=== PATIENT | male | born 1970 | race Caucasian/White ===

== ENCOUNTER 2019-01-24 15:54 | Observation (INO) | payer OTHER, SELFPAY ==
[2019-01-24 16:32] LABS: #Basophils 0.1 thou/uL (0.0-0.2); #Eosinphils 0.2 thou/uL (0.0-0.7); #Monocytes 0.4 thou/uL (0.11-0.59); #Neutrophils 3.3 thou/uL (1.40-6.50); %Basophils 1.4 % (0.0-1.0); %Eosinophils 2.6 % (0.0-10.0); %Lymphocytes 33.8 % (21.0-51.0); %Monocytes 7.1 % (0.0-10.0); %Neutrophils 55.1 % (42.0-75.0); Hemoglobin 15.4 g/dL (14.0-18.0); Mean Corpuscular Hemoglobin 32.8 pg (27.0-31.0); Mean Corpuscular Volume 91.1 fL (78.0-98.0); Mean Platelet Volume 6.6 fL (7.4-10.4); Platelet Count 286 thou/uL (130-400); RBC Distribution Width 11.6 % (11.5-14.5); Red Blood Cell (RBC) Count 4.69 mill/uL (4.70-6.10)
[2019-01-24 17:01] LABS: ALT (SGPT) 28 U/L (8-55); AST (SGOT) 15 U/L (5-34); Albumin 4.5 g/dL (3.5-5.0); Alkaline Phosphatase 74 U/L (40-150); Anion Gap 17 mmol/L (10-20); BUN (Urea Nitrogen) 10 mg/dL (8.9-20.6); Bilirubin, Total 0.5 mg/dL (0.2-1.2); Calc. Creatinine Clearance 0 mL/min (70-130); Calcium 9.2 mg/dL (7.8-10.44); Carbon Dioxide 22 mmol/L (22-29); Chloride 99 mmol/L (98-107); Estimated GFR-MDRD Greater than 90; Globulin 3.2 g/dL (2.4-3.5); Glucose 206 mg/dL (70-105); Potassium 3.7 mmol/L (3.5-5.1); Protein, Total 7.7 g/dL (6.0-8.3); Sodium 134 mmol/L (136-145)
--- NOTE | 2019-01-24 17:14 | RAD ---
EXAM: Chest one view: HISTORY: Chest pain COMPARISON: 12/02/2010 FINDINGS: Heart size: Within normal limits. Lungs: Clear of acute process. No evidence for pneumonia, pleural effusion, acute edema, or pneumothorax, or other significant acute process. IMPRESSION: No significant acute intrathoracic disease.
--- NOTE | 2019-01-24 17:16 | ULT ---
EXAM: Right lower extremity venous duplex ultrasound with color and spectral Doppler imaging: HISTORY: Right leg pain, swelling, edema COMPARISON: None FINDINGS: Exam performed from the groin to the ankle including the visualized greater saphenous, common femoral , superficial femoral, profunda femoral, popliteal, trifurcation, and posterior tibial veins. There is phasic flow with normal compressibility and normal augmentation at all examined levels. No evidence for intraluminal thrombus. IMPRESSION: No evidence for deep venous thrombosis.
[2019-01-24] MEDS ORDERED: Nitroglycerin 2% Ointment 1 INCH/1 GM Packet ONE (17:55)
[2019-01-24] MEDS ORDERED: Aspirin Chewable 81 MG TAB ONE (17:55)
[2019-01-24] MEDS ORDERED: Ondansetron PF 4 MG/2 ML Vial IVP PRN (18:06)
[2019-01-24] MEDS ORDERED: Acetaminophen 325 MG TAB PO PRN (18:06)
[2019-01-24] MEDS ORDERED: Acetaminophen 650 MG Suppository PR PRN (18:06)
[2019-01-24] MEDS ORDERED: Ondansetron ODT 4 MG TAB PO PRN (18:06)
[2019-01-24] MEDS ORDERED: HumaLOG 300 UNITS/3 ML VIAL SC PRN ×2 (18:14)
[2019-01-24] MEDS ORDERED: Dextrose 5% in Water 1,000 ML IV PRN (18:14)
[2019-01-24] MEDS ORDERED: Dextrose 50% Abboject 50 ML SYRINGE SLOW IVP PRN (18:14)
[2019-01-24 19:19] VITALS: BMI 37.4
--- NOTE | 2019-01-24 19:37 | HP ---
CHIEF COMPLAINT: Chest pain. HISTORY OF PRESENT ILLNESS: Mr. Yoon is a 48-year-old man with an extensive cardiac history including two MIs in the past, a history of CVA and multiple cardiac stents (approximately total of 13). The patient states none of the stents were removed nor clotted off, but he continued to require additional stents. He states he initially was seen by Cardiology at [facility] and it was decided the occlusion to his LAD could be fixed with stents. The patient states after having multiple stents, it was felt he would not be amenable to surgery due to scarring. The patient moved to [place] due to his father becoming ill and he established care with Cardiology there. Again, required stent placements and has more recently returned to [facility] and started working at [facility] and . He has not yet established care here and has not been seen by a continuous improvement coach in over a year. His last investigations and echo were done approximately 2 years ago during which time, the patient states his ejection fraction was just shy of what would qualify him for disability. He has been compliant with his medications including metformin for diabetes, lisinopril for hypertension and aspirin as well as Plavix. The patient, however, states he ran out of his Coreg and due to not having insurance, has been unable to resume it. He states he often experiences central chest pressure, but in the last 2 days it has become more severe, which he describes as "someone sitting on my chest." The patient has also developed burning sensation to his face today with diaphoresis. He states the pressure is nonradiating. Denies any neck pain or pain in his arms. Denies any recent cough or hemoptysis. Reports having shortness of breath at baseline, which is slightly worsened as well for the last 2 to 3 days. He states he has residual dizziness from a previous CVA and states he was told the cervical arteries were significantly stenosed and he has approximately 40% to 50% bilateral carotid artery stenosis. The patient states his dizziness is the same as it has been since experiencing the CVA in the past. Denies any speech disturbances or vision changes. No neuro deficits. He has a good appetite. Reports being extremely overweight and previously weighed 453 pounds, much of which he has lost. Reports having intermittent issues with diarrhea and constipation which are long-standing. Reports chronic dysuria but no hematuria. Reports having mild nausea today. REVIEW OF SYSTEMS: All other review of systems are negative. PAST MEDICAL HISTORY: 1. Extensive coronary artery disease. 2. Myocardial infarction x2. 3. Type 2 diabetes mellitus. 4. Kidney stones. 5. Hyperlipidemia. 6. Hypertension. 7. Obesity. PAST SURGICAL HISTORY: 1. Cardiac stents x13. 2. Left index finger surgery. 3. Lithotripsy. SOCIAL HISTORY: The patient denies any tobacco use, alcohol use, or illicit drug use. ALLERGIES: 1. TEGRETOL. 2. BEE POLLEN. CURRENT MEDICATIONS: 1. Metformin. 2. Lisinopril. 3. Carvedilol. 4. Plavix. 5. Atorvastatin. PHYSICAL EXAMINATION: GENERAL: The patient appears obese, well developed, and is in no apparent distress. VITAL SIGNS: Temperature 98.6, pulse 88, respirations 14, O2 saturation 97% on room air, and blood pressure 171/84. HEENT: Normocephalic and atraumatic. Pupils are equal, round, reactive to light. Sclerae are without icterus. Oropharynx is clear. NECK: Supple without lymphadenopathy. Full range of motion. LUNGS: Clear to auscultation bilaterally without any wheezes, rales, or rhonchi. CARDIAC: Regular rate and rhythm. ABDOMEN: Obese, soft, nontender, nondistended. Normoactive bowel sounds present. No guarding or rigidity. No renal angle tenderness. EXTREMITIES: His right calf has increased girth compared to the left. No calf tenderness. No edema. NEUROLOGIC: Alert and oriented x3. No neuro deficits. Cranial nerves 2 through 12 intact. No cerebellar signs. SKIN: Warm and dry. No rash or jaundice. LABORATORY DATA: White blood count 6, hemoglobin 15.4, hematocrit 42.7, platelets 286. Sodium 134, potassium 3.7, BUN 10, creatinine 0.79, GFR greater than 90, glucose 206, calcium 9.2, total bilirubin 0.5. Remaining LFTs unremarkable. Initial troponin negative. IMAGING DATA: 1. Chest x-ray 01/24/2019, no significant acute intrathoracic disease. Heart size within normal limits. 2. Vascular ultrasound of the right lower extremity, 01/24/2019. No evidence for DVT. IMPRESSION AND PLAN: Mr. Yoon is a pleasant 48-year-old man with extensive cardiac history as detailed above, who has been referred for management of the following. 1. Acute coronary syndrome rule out. In the emergency department, he underwent an EKG that shows a complete right bundle-branch block with no ST or T-wave abnormalities. The patient confirmed he is known to have a right bundle-branch block. Chest x-ray unremarkable. Initial troponin negative. We will continue to trend his troponin. We will consult Cardiology for review tomorrow morning. We have tentatively scheduled a stress test in the a.m. following discussion with Dr. Wilkins given the fact that it has been more than two years since his last cardiac investigations. We will also obtain an echo. The patient is currently being given nitro paste and aspirin. We will need to obtain records from [facility] and from the Cardiology office in [place] if possible. We will add TSH and magnesium to his labs as well as a BNP. 2. Type 2 diabetes mellitus. We will hold metformin. We will initiate insulin sliding scale and monitor his glucose. 3. Hypertension. We will resume home medications once verified. We will monitor his blood pressure. 4. Hyperlipidemia. We will resume statin and we will check lipid panel with am labs. 5. Gastrointestinal prophylaxis. 6. Deep venous thrombosis prophylaxis with mechanical SCDs. 7. Dysuria. The patient states this is chronic and not worse than normal, but we will check urinalysis. 8. Code status full. His surrogate decision maker is his , Goldie Yoon. The patient's case will be discussed with attending for further recommendations. Job ID: [id number] MTDD
[2019-01-24 20:50] LABS: Troponin I Less than 0.010 ng/mL (< 0.028)
[2019-01-24] MEDS ORDERED: Famotidine/PF 20 mg/2ml Vial SLOW IVP SCH (21:00)
[2019-01-24] MEDS ORDERED: Nitroglycerin 0.4 MG TAB (25 Tab Bottle) SL PRN (22:33)
[2019-01-24] MEDS ORDERED: Carvedilol 6.25 MG TAB PO SCH (22:45)
[2019-01-24] MEDS ORDERED: Atorvastatin Calcium 40 MG TAB PO SCH (22:45)
[2019-01-24] MEDS: Famotidine 20 MG TAB PO SCH (23:12)
[2019-01-24 23:31] LABS: Bilirubin Negative (Negative); Blood, Urine Negative (Negative); Clarity CLEAR (Clear); Glucose, Urine (Dipstick) Negative (Negative); Leukocyte Negative (Negative); Nitrite Negative (Negative); Protein, Urine (Dipstick) Negative (Neg-Trace); Urobilinogen 0.2 mg/dL (0.2-1.0)
[2019-01-24 23:32] LABS: Bacteria/HPF None Seen HPF (None Seen); Hyaline Casts/LPF 0-3 HYALINE CAST LPF (0-3 Hyaline); RBC/HPF 0-3 HPF (0-3); Squamous Epithelial None Seen HPF (0-3); WBC/HPF None Seen HPF (0-3)
[2019-01-24 23:34] LABS: Troponin I Less than 0.010 ng/mL (< 0.028)
[2019-01-24 23:43] LABS: Urine Culture Reflex No No
[2019-01-25 00:07] LABS: Amphetamine Not Detected (NotDetected); Barbiturates Screen Not Detected (NotDetected); Benzodiazepine Screen Not Detected (NotDetected); Cocaine Metabolite Screen Not Detected (NotDetected); Medtox Control Line Valid? VALID (VALID); Medtox Reader # READER 4; Methadone Not Detected (NotDetected); Methamphetamine Not Detected (NotDetected); Opiate Screen Not Detected (NotDetected); Oxycodone Screen Not Detected (NotDetected); Phencyclidine (PCP) Not Detected (NotDetected); THC/Cannabinoid Screen Not Detected (NotDetected); Tricyclic Screen Not Detected (NotDetected)
[2019-01-25 05:07] LABS: #Basophils 0.1 thou/uL (0.0-0.2); #Eosinphils 0.2 thou/uL (0.0-0.7); #Lymphocytes 2.3 thou/uL (1.20-3.40); #Monocytes 0.6 thou/uL (0.11-0.59); #Neutrophils 3.3 thou/uL (1.40-6.50); %Eosinophils 2.6 % (0.0-10.0); %Monocytes 9.3 % (0.0-10.0); %Neutrophils 51.1 % (42.0-75.0); Hemoglobin 13.7 g/dL (14.0-18.0); Mean Corpuscular HGB CONC 34.8 g/dL (32.0-36.0); Mean Corpuscular Hemoglobin 32.1 pg (27.0-31.0); Mean Corpuscular Volume 92.3 fL (78.0-98.0); Mean Platelet Volume 6.7 fL (7.4-10.4); Platelet Count 253 thou/uL (130-400); RBC Distribution Width 11.7 % (11.5-14.5); Red Blood Cell (RBC) Count 4.27 mill/uL (4.70-6.10); White Blood Cell (WBC) Count 6.4 thou/uL (4.8-10.8)
[2019-01-25 05:27] LABS: Anion Gap 14 mmol/L (10-20); BUN (Urea Nitrogen) 10 mg/dL (8.9-20.6); Calc. Creatinine Clearance 212 mL/min (70-130); Calcium 8.8 mg/dL (7.8-10.44); Carbon Dioxide 24 mmol/L (22-29); Cardiac Risk 5.6 (Less than 4.5); Chloride 102 mmol/L (98-107); Cholesterol 167 mg/dl (< 200 Desired); Estimated GFR-MDRD Greater than 90; Glucose 163 mg/dL (70-105); HDL Cholesterol 30 mg/dL (>60 Neg Risk); LDL Cholesterol, Calculated 58 mg/dL; Potassium 4.1 mmol/L (3.5-5.1); Sodium 136 mmol/L (136-145); Triglycerides 397 mg/dL (Less than 150)
[2019-01-25] MEDS: Famotidine 20 MG TAB PO SCH (08:49)
[2019-01-25] MEDS ORDERED: Carvedilol 6.25 MG TAB PO SCH (09:00)
[2019-01-25] MEDS ORDERED: Clopidogrel Bisulfate 75 MG TAB PO SCH (09:00)
[2019-01-25] MEDS ORDERED: Lisinopril 20 MG TAB PO SCH (09:00)
[2019-01-25] MEDS ORDERED: Aspirin 81 mg Enteric Coated Tablet PO SCH (11:45)
--- NOTE | 2019-01-25 12:09 | NM ---
EXAM: Nuclear medicine cardiac SPECT with EF and wall motion: HISTORY: Chest pain Protocol: Exam was performed using Lexiscan protocol. The patient is injected with28.0 millicuries of technetium 99m sestamibi intravenously for stress martha ges. The patient is injected with9.9 millicuries of technetium 99 sestamibi intravenously for resting imag es. Multiple SPECT images are performed in the short axis, vertical long axis, and horizontal long axis. FINDINGS: No scan evidence for infarct or ischemia. TID:1.09 LHR:0.34 EDV:145 mL EF:64% Wall motion:Unremarkable IMPRESSION: Unremarkable cardiac SPECT with EF and wall motion
[2019-01-25 15:46] VITALS: BP 129/64; TEMP 98.6
--- NOTE | 2019-01-25 19:25 | CON ---
DATE OF CONSULTATION: HISTORY OF PRESENT ILLNESS: Suraj Yoon is a 48-year-old white male, who has been seen and evaluated by multiple cardiologists in the past. He previously saw Dr. Hubbard and then was seen by Dr. aMrk Mendez in [place] and had stents placed. He then saw Dr. Degroot, had stents placed. He also underwent stent placement by Dr. Tang at [facility] in November 2015. He then moved to [place] and had stents placed there. He recently has moved back to [facility]. He has been out of his atorvastatin for at least 3 to 4 months and also out of his carvedilol for 10 or 12 days. He states he always has left-sided chest discomfort that is one very small area that is somewhat pleuritic in nature and is there 24 hours per day. He had had a somewhat different type discomfort that was more of a pressure in his chest that lasted continually for 2-1/2 days before he finally came to the emergency room. He has been restarted on his medications and has been asymptomatic since. PAST MEDICAL HISTORY: Coronary artery disease, history of myocardial infarction x2, diabetes, hyperlipidemia, hypertension, obesity. PAST SURGICAL HISTORY: 13 coronary artery stents placed, left index finger surgery, and lithotripsy. MEDICATIONS: 1. Atorvastatin 80 q.h.s. 2. Carvedilol 6.25 b.i.d. 3. Plavix 75 daily. 4. Aspirin 325 daily. 5. Lisinopril 30 daily. 6. Magnesium 250 q.h.s. 7. Metformin 1000 b.i.d. 8. Potassium 99 mg daily. ALLERGIES: HONEY BEE VENOM AND TEGRETOL. SOCIAL HISTORY: He does not smoke or drink. REVIEW OF SYSTEMS: Unremarkable. PHYSICAL EXAMINATION: VITAL SIGNS: Blood pressure 129/64, pulse 75. HEENT: PERRL. NECK: Supple. CHEST: Clear. CARDIAC: S1 and S2 are normal without any S3, S4, or murmurs. Carotid upstrokes are normal without bruits. ABDOMEN: Normal bowel sounds without tenderness or organomegaly. EXTREMITIES: Revealed no clubbing, cyanosis, or edema. LABORATORY DATA: EKG revealed normal sinus rhythm with left axis deviation and right bundle-branch block. Hemoglobin 13.7, hematocrit 39.4, white count 6400, and platelets 253,000. Sodium 136, potassium 4.1, chloride 102, carbon dioxide 24, BUN 10, and creatinine 0.81. Cholesterol 167, triglycerides 397, HDL 30, LDL 58. The patient underwent adenosine Cardiolite testing, which revealed no evidence of ischemia or fixed defect with ejection fraction of 64%. Troponin I less than 0.010. IMPRESSION: 1. Continual cardiac pain that is present 24 hours per day and somewhat pleuritic in nature that does not sound cardiac. 2. 2-1/2 days of continual pain, probably due to noncompliance with his carvedilol. 3. Normal Cardiolite at this time. 4. History of multiple coronary stents placed in the past. 5. Hypertension. 6. Hyperlipidemia. 7. Diabetes. PLAN: With normal Cardiolite scan, I feel our best initial course would be to just restart his usual medications. Currently, he is asymptomatic with that, and I do not feel that he needs to undergo cardiac catheterization at this time. He will be seen again in two months for followup of his lipids. Job ID: [id number] [facility]X HOSPITALJose Luis
[2019-01-25] MEDS ORDERED: Atorvastatin Calcium 40 MG TAB PO SCH (21:00)
--- NOTE | 2019-01-26 03:19 | DIS ---
DATE OF ADMISSION: 01/24/2019 DATE OF DISCHARGE: 01/25/2019 CHIEF COMPLAINT ON ADMISSION: Chest pain. DISCHARGE DIAGNOSES: 1. Chest pain, resolved, acute coronary syndrome ruled out, MPI negative for reversible ischemia, and showing normal EF. 2. Triple-vessel coronary artery disease status post multiple interventions/PCI, 12 to 13 for patient with at least three different collaborative teacher. 3. Hypertension. 4. Type 2 diabetes mellitus. 5. Hyperlipidemia/hypertriglyceridemia. BRIEF HOSPITAL COURSE: The patient is a 48-year-old male with past medical history significant for triple-vessel CAD status post multiple interventions as outlined above, who presented to the hospital with complaints of chest discomfort. The patient describes the pain as pressure and it was relieved with nitroglycerin. Because of his history, he did present to the emergency department for further workup and treatment. He underwent nuclear stress test, which showed no evidence of reversible ischemia and normal EF. Dr. Chun of Cardiology was consulted, who saw the patient as well. Dr. Chun did clear the patient for discharge, and he will follow up with him in the outpatient setting. Upon my interview today, the patient's initial complaint of chest pressure has resolved. He does have some residual noncardiac chest pain that is constant and that the patient can pinpoint. Otherwise, no complaints. CONSULTANTS: Dr. Chun of Cardiology. DISCHARGE CONDITION: Stable. DISCHARGE DISPOSITION: Home. DISCHARGE INSTRUCTIONS AND FOLLOWUP: The patient will be discharged home today. He will continue aspirin, Plavix, statin, beta lc, and lisinopril. He has been cleared for discharge by Dr. Chun. He will follow up with Dr. Chun in the outpatient setting, as well as have his cholesterol panel rechecked in about 3 months. The patient has also been advised to find a primary care physician to follow up with as well. I have also sent him home with a new prescription for sublingual nitroglycerin for him to take as needed. No indications for left heart catheterization at this time. He will also continue aggressive risk factor modification including aggressive blood glucose control. Job ID: [id number]
[2019-01-26] MEDS ORDERED: Aspirin 81 mg Enteric Coated Tablet PO SCH (09:00)
--- NOTE | 2019-01-30 20:48 | EKG ---
Test Reason : Blood Pressure : / mmHG Vent. Rate : 090 BPM Atrial Rate : 090 BPM P-R Int : 140 ms QRS Dur : 158 ms QT Int : 402 ms P-R-T Axes : 046 -38 010 degrees QTc Int : 491 ms Normal sinus rhythm Possible Left atrial enlargement Left axis deviation Right bundle branch block Abnormal ECG Confirmed by RAKEL HENDERSON M.D. ([id number]), production editor CHRISTINA MONDRAGON ([id number]) on 01/30/2019 8:47:59 PM Referred By: Confirmed By:RAKEL HENDERSON M.D.
== END 2019-01-25 18:13 | disposition home or self-care (01) ==
LOC: ERS 15:54 → 2SW 19:01
PROVIDERS: ADMIT Family Medicine; ATTEND Family Medicine
DX: R07.89 Other chest pain (principal); I25.10 Atherosclerotic heart disease of native coronary artery without angina pectoris; I10 Essential (primary) hypertension; E11.9 Type 2 diabetes mellitus without complications; E78.5 Hyperlipidemia, unspecified; E78.1 Pure hyperglyceridemia; I25.2 Old myocardial infarction; E66.9 Obesity, unspecified; I45.10 Unspecified right bundle-branch block; R30.0 Dysuria; Z95.5 Presence of coronary angioplasty implant and graft; Z86.73 Personal history of transient ischemic attack (TIA), and cerebral infarction without residual deficits; Z68.37 Body mass index [BMI] 37.0-37.9, adult; Z91.030 Bee allergy status; Z88.8 Allergy status to other drugs, medicaments and biological substances; Z79.84 Long term (current) use of oral hypoglycemic drugs; Z79.02 Long term (current) use of antithrombotics/antiplatelets; Z79.899 Other long term (current) drug therapy
CPT/HCPCS: 36415; 36416; 71045; 78452; 80048; 80053; 80061; 80306; 81001; 83735; 83880; 84443; 84484; 85025; 93005; 93017; 94760; A9500; G0378; J0153; S0028

== ENCOUNTER 2020-02-21 17:35 | Observation (INO) | payer OTHER ==
[2020-02-21 18:30] LABS: #Basophils 0.1 thou/uL (0.0-0.2); #Eosinphils 0.2 thou/uL (0.0-0.7); #Lymphocytes 1.8 thou/uL (1.20-3.40); #Monocytes 0.5 thou/uL (0.11-0.59); %Basophils 0.8 % (0.0-1.0); %Eosinophils 2.1 % (0.0-10.0); %Lymphocytes 23.5 % (21.0-51.0); %Monocytes 6.9 % (0.0-10.0); %Neutrophils 66.7 % (42.0-75.0); Hemoglobin 15.2 g/dL (14.0-18.0); Mean Corpuscular HGB CONC 35.6 g/dL (32.0-36.0); Mean Corpuscular Hemoglobin 32.4 pg (27.0-31.0); Mean Corpuscular Volume 90.8 fL (78.0-98.0); Mean Platelet Volume 7.2 fL (7.4-10.4); Platelet Count 266 thou/uL (130-400); RBC Distribution Width 11.7 % (11.5-14.5); Red Blood Cell (RBC) Count 4.71 mill/uL (4.70-6.10); White Blood Cell (WBC) Count 7.5 thou/uL (4.8-10.8)
[2020-02-21 18:52] LABS: ALT (SGPT) 34 U/L (8-55); AST (SGOT) 21 U/L (5-34); Albumin 4.6 g/dL (3.5-5.0); Alkaline Phosphatase 62 U/L (40-110); Anion Gap 14 mmol/L (10-20); BUN (Urea Nitrogen) 21 mg/dL (8.9-20.6); Bilirubin, Total 0.5 mg/dL (0.2-1.2); CK (CPK) 216 U/L (30-200); Calc. Creatinine Clearance 0 mL/min (70-130); Calcium 9.9 mg/dL (7.8-10.44); Carbon Dioxide 24 mmol/L (22-29); Chloride 99 mmol/L (98-107); Estimated GFR-MDRD 73; Globulin 2.7 g/dL (2.4-3.5); Glucose 237 mg/dL (70-105); Lipase 23 U/L (8-78); Potassium 4.3 mmol/L (3.5-5.1); Protein, Total 7.3 g/dL (6.0-8.3); Sodium 133 mmol/L (136-145)
--- NOTE | 2020-02-21 19:07 | RAD ---
Exam: Chest one view HISTORY:Chest pain Comparison: 01/24/2019 FINDINGS: Cardiac silhouette: Normal Aorta: Unremarkable Pulmonary vessels: Normal Costophrenic angles: Clear LUNGS: No masses or consolidation. Pneumothorax: None Osseous abnormalities: None IMPRESSION: No acute cardiopulmonary process.
[2020-02-21] MEDS ORDERED: Nitroglycerin 2% Ointment 1 INCH/1 GM Packet ONE (19:59)
[2020-02-21] MEDS ORDERED: Aspirin Chewable 81 MG TAB ONE (19:59)
[2020-02-21 23:19] VITALS: BMI 36.8
[2020-02-22] MEDS ORDERED: Ondansetron PF 4 MG/2 ML Vial IVP PRN (00:17)
[2020-02-22] MEDS ORDERED: Ondansetron ODT 4 MG TAB SL PRN (00:17)
[2020-02-22 03:21] LABS: Troponin I 0.026 ng/mL (< 0.028)
[2020-02-22] MEDS ORDERED: Senokot S 8.6-50 MG TAB PO PRN (04:05)
[2020-02-22] MEDS ORDERED: Acetaminophen 325 MG TAB PO PRN (04:05)
[2020-02-22] MEDS ORDERED: HYDROcodone/Acetaminophen 5/325 mg Tablet PO PRN ×2 (04:05)
[2020-02-22] MEDS ORDERED: HumaLOG 300 UNITS/3 ML VIAL SC PRN (04:09)
[2020-02-22] MEDS ORDERED: Dextrose 50% Abboject 50 ML SYRINGE SLOW IVP PRN (04:09)
[2020-02-22] MEDS ORDERED: Dextrose 5% in Water 1,000 ML IV PRN (04:09)
[2020-02-22 04:51] LABS: #Basophils 0.1 thou/uL (0.0-0.2); #Eosinphils 0.2 thou/uL (0.0-0.7); #Lymphocytes 2.3 thou/uL (1.20-3.40); #Monocytes 0.5 thou/uL (0.11-0.59); #Neutrophils 2.9 thou/uL (1.40-6.50); %Basophils 1.3 % (0.0-1.0); %Eosinophils 2.5 % (0.0-10.0); %Lymphocytes 38.7 % (21.0-51.0); %Monocytes 8.3 % (0.0-10.0); %Neutrophils 49.2 % (42.0-75.0); Hemoglobin 13.8 g/dL (14.0-18.0); Mean Corpuscular HGB CONC 34.4 g/dL (32.0-36.0); Mean Corpuscular Hemoglobin 31.6 pg (27.0-31.0); Mean Corpuscular Volume 91.7 fL (78.0-98.0); Mean Platelet Volume 6.9 fL (7.4-10.4); Platelet Count 242 thou/uL (130-400); RBC Distribution Width 11.6 % (11.5-14.5); Red Blood Cell (RBC) Count 4.38 mill/uL (4.70-6.10)
--- NOTE | 2020-02-22 04:58 | HP ---
CHIEF COMPLAINT: Chest pain. HISTORY OF PRESENT ILLNESS: Mr. Yoon is a 49-year-old man with a significant past medical history for coronary artery disease, hypertension, diabetes, hyperlipidemia, and has 13 cardiac stents, he said mostly in the LAD. He reports that he has had ongoing chest pain for months, but worse in the last several days. He reports he has a chest pressure heaviness to his left chest that radiates down his left arm. He had a syncopal episode yesterday. He said he bent over and then passed out. He said he denies hitting his head or any injuries. He recently changed PCPs. He lives in [place], but has not established care with a band tier yet. He has seen multiple cardiologists in this town including Dr. Hubbard, Dr. Chun, and Dr. Mikayla martínez at [place] and then Dr. Tang at [facility] sometime in the past. He also does saw Dr. Neves in [place]. In the last, Dr. Tang at [facility] put a stent in in 2015. He has moved to [place] and also had more stents placed there and then he has recently moved back to the [place] area. He reports that he has had multiple MIs and a CVA and reports that his troponin has only been elevated one time in all of those events. He reports that he has peripheral artery and peripheral venous disease. He underwent a stress test this time last year which was normal. Dr. Chun saw him at that point and thought it prudent to start him on his medications that he had been without for several weeks and see how he did. He had an EF last January of 64% and unremarkable wall motion. At this time, in the emergency room, his troponin was negative x3, sodium is a little low at 133, BUN at 21, glucose at 237, CK at 216, white blood cell count is 7.5, hemoglobin is 15.2, hematocrit is 42.8. EKG in the emergency room with normal sinus rhythm, beats per minute 87 with a right bundle-branch block, normal axis, no significant ST elevation or depression. He was given an aspirin and a Nitro-Bid 0.5 and he said that did relieve his pain somewhat, but it is still there. He will be admitted to the telemetry unit for further management. REVIEW OF SYSTEMS: The patient reports chest pain, reports radiation to the left arm, reports syncope. He reports cough usually in the morning, but it clears. He denies any fever or chills. He denies any abdominal pain, nausea, vomiting, or diarrhea. He does report some shortness of breath, but nothing out of the ordinary for him. All systems are reviewed and are negative unless mentioned in the HPI. PAST MEDICAL HISTORY: Pertinent for significant cardiac history, 13 cardiac stents. He has had CO x2, had a CVA, history of diabetes type 2, kidney stones, hyperlipidemia, and hypertension. SURGICAL HISTORY: Finger surgery, angioplasty, lithotripsy, 13 cardiac stents. PSYCHIATRIC HISTORY: None. SOCIAL HISTORY: Lives at home with his family. He denies any alcohol. No smoking. No drugs. ALLERGIES: BEE POLLEN, TEGRETOL. CURRENT MEDICATIONS: Per the ER system; 1. Metformin a 1000 mg p.o. b.i.d. 2. Lisinopril 40 mg p.o. once a day. 3. Coreg 6.25 mg p.o. b.i.d. 4. Plavix 75 mg p.o. once a day. 5. Atorvastatin 80 mg p.o. once a day. 6. Aspirin 81 mg p.o. once a day. PHYSICAL EXAMINATION: VITAL SIGNS: Blood pressure 139/87, pulse is 84, respiratory rate is 16, pO2 sats 96% on room air, temp is 98.2. CONSTITUTIONAL: The patient appears pain free. He is alert and oriented to person, place, and time. HEAD: Atraumatic and normocephalic. EYES: Pupils equally round and reactive to light. Extraocular muscles are intact. NECK: Normal range of motion. Trachea is midline. RESPIRATORY/CHEST: Breath sounds are clear. Chest expansion is equal. CARDIOVASCULAR: Regular rate and rhythm. Heart sounds are normal. ABDOMEN: Nontender bowel sounds are heard. BACK: Normal range of motion. No tenderness. EXTREMITIES: Upper extremity; normal range of motion, inspection is normal, radial pulses are normal. Lower extremity; normal range of motion, motor strength is normal, pedal pulses are normal. NEURO: The patient is oriented to person, place, and time. Speech is normal. SKIN: Warm, dry, normal in color. PLAN AND ASSESSMENT: 1. Chest pain with 3 negative troponins, but a significant cardiac history with 13 stents. He did have a normal stress test a year ago in January 2019. He does have symptoms with the chest pressure with radiation to the left arm, which is concerning. Rather than repeat the stress test, we will ask Cardiology to consult considering his history. 2. History of hypertension. We will restart his home medications. 3. History of diabetes type 2. Sliding scale coverage. Accu-Cheks a.c. and at bedtime. Can restart his metformin closer to discharge. 4. Hyperlipidemia. We will restart his atorvastatin. 5. Deep vein thrombosis and gastrointestinal prophylaxis have been started. 6. Case discussed with Dr. Sena who agrees with plan. 7. Hospital course dependent on clinical findings. Job ID: [id number]
[2020-02-22 05:15] LABS: ALT (SGPT) 30 U/L (8-55); AST (SGOT) 21 U/L (5-34); Albumin 4.2 g/dL (3.5-5.0); Alkaline Phosphatase 55 U/L (40-110); Anion Gap 15 mmol/L (10-20); BUN (Urea Nitrogen) 17 mg/dL (8.9-20.6); Bilirubin, Total 0.6 mg/dL (0.2-1.2); Calc. Creatinine Clearance 209 mL/min (70-130); Calcium 9.2 mg/dL (7.8-10.44); Carbon Dioxide 24 mmol/L (22-29); Cardiac Risk 5.5 (Less than 4.5); Chloride 100 mmol/L (98-107); Cholesterol 148 mg/dl (< 200 Desired); Estimated GFR-MDRD Greater than 90; Globulin 2.4 g/dL (2.4-3.5); Glucose 236 mg/dL (70-105); HDL Cholesterol 27 mg/dL (>60 Neg Risk); Potassium 3.9 mmol/L (3.5-5.1); Protein, Total 6.6 g/dL (6.0-8.3); Sodium 135 mmol/L (136-145); Triglycerides 439 mg/dL (Less than 150)
[2020-02-22] MEDS: Famotidine 20 MG TAB PO SCH ×2 (09:36→21:22)
[2020-02-22] MEDS: Enoxaparin Sodium 40 MG/0.4 ML SYRINGE SC SCH (09:37)
[2020-02-22] MEDS ORDERED: Iopamidol 370 76% 100 ML VIAL ONE (11:42)
[2020-02-22] MEDS ORDERED: Iopamidol 370 76% 50 ML VIAL FS ONE (11:42)
[2020-02-22] MEDS ORDERED: Heparin 10,000 UNITS/1 ML VIAL ONE ×2 (12:19→13:39)
[2020-02-22] MEDS ORDERED: Verapamil 5 MG/2 ML VIAL ONE (12:19)
[2020-02-22] MEDS ORDERED: Nitroglycerin 100MG/250ML BOT 250 ML ONE (12:19)
[2020-02-22 12:22] LABS: SARS-CoV-2 MS2 Positive; SARS-CoV-2 N Gene Negative; SARS-CoV-2 S Gene Negative; SARS-CoV-2 by NAA Not Detected (NotDetected); SARS-CoV-2 orf1ab Negative
--- NOTE | 2020-02-22 12:45 | PDOC.HOSPP ---
- Subjective Encounter Date: 02/22/20 Encounter Time: 10:45 Subjective: still has some chest dyscomfort in his left chest no sob says he is compliant with meds and diet?, has lost sig amount of weight per pics he shows has seen multiple cardiologists and has nearly 13 stents - Objective Vital Signs & Weight: Vital Signs (12 hours) Temp Pulse Resp BP Pulse Ox 02/22/20 12:00 97.7 F 79 16 137/72 95 02/22/20 07:34 97.7 F 80 16 132/67 97 02/22/20 03:58 97.5 F L 76 18 109/59 L 96 Weight Weight 294 lb 12.128 oz I&O: 02/21/20 02/22/20 02/23/20 06:59 06:59 06:59 Output Total 600 Balance -600 Result Diagrams: 02/22/20 04:29 02/22/20 04:29 Additional Labs: Accuchecks 02/22/20 02/22/20 11:07 06:01 POC Glucose 251 H 225 H Hospitalist ROS - Medication Medications: Active Medications Generic Name Dose Route Start Last Admin Trade Name Freq PRN Reason Stop Dose Admin Acetaminophen 650 mg 02/22/20 04:05 02/22/20 04:33 Tylenol PO 650 mg Q4H PRN Administration Headache/Fever/Mild Pain (1-3) Enoxaparin Sodium 40 mg 02/22/20 09:00 02/22/20 09:37 Lovenox SC Not Given 0900 CARLY Famotidine 20 mg 02/22/20 09:00 02/22/20 09:36 Pepcid PO 20 mg BID CARLY Administration - Exam General Appearance: awake alert Eye: PERRL, anicteric sclera ENT: no oropharyngeal lesions, moist mucosa Neck: supple, no JVD Heart: RRR, no murmur Respiratory: no wheezes, no rales Gastrointestinal: soft, non-tender, non-distended, normal bowel sounds Extremities: no cyanosis, no edema Neurological: cranial nerve grossly intact, no focal deficits Psychiatric: normal affect, A&O x 3 Hosp A/P (1) Chest pain Code(s): R07.9 - CHEST PAIN, UNSPECIFIED Status: Acute Qualifiers: Chest pain type: unspecified Qualified Code(s): R07.9 - Chest pain, unspecified (2) CAD (coronary artery disease) Code(s): I25.10 - ATHSCL HEART DISEASE OF [place] CORONARY ARTERY W/O ANG PCTRS Status: Chronic Qualifiers: Coronary Disease-Associated Artery/Lesion type: [place] artery [place] vs. transplanted heart: [place] heart Associated angina: with stable angina Qualified Code(s): I25.118 - Atherosclerotic heart disease of [place] coronary artery with other forms of angina pectoris (3) Obesity Code(s): E66.9 - OBESITY, UNSPECIFIED Status: Chronic Qualifiers: Obesity classification: adult class 2 (BMI 35 - 39.9) Body mass index: BMI 36.0-36.9 (4) Dyslipidemia Code(s): E78.5 - HYPERLIPIDEMIA, UNSPECIFIED Status: Chronic (5) HTN (hypertension) Code(s): I10 - ESSENTIAL (PRIMARY) HYPERTENSION Status: Chronic Qualifiers: Hypertension type: essential hypertension Qualified Code(s): I10 - Essential (primary) hypertension (6) DM type 2 (diabetes mellitus, type 2) Status: Chronic Qualifiers: Diabetes mellitus emt intermediate insulin use: without half-way use Diabetes mellitus complication status: with other specified complication Qualified Code (s): E11.69 - Type 2 diabetes mellitus with other specified complication - Plan hemostable trop x 3 is -ve, trig are 439 is npo, cardio opinion, last stress test last year done here. may dc home if cleared by cardiology continue home meds as above
[2020-02-22] MEDS ORDERED: Midazolam HCl 2 mg/2 ml Vial ONE ×2 (13:02→13:25)
[2020-02-22] MEDS ORDERED: TICAGRELOR 90 MG TABLET ONE (13:39)
--- NOTE | 2020-02-22 14:33 | CON ---
DATE OF CONSULTATION: 02/22/2020 REASON FOR CONSULTATION: Angina. PRIMARY METAL BURNISHER: Ivan Chun, has seen in the recent past. HISTORY OF PRESENT ILLNESS: Mr. Yoon is a pleasant 49-year-old white gentleman, who comes to the hospital for chest pain. He has a significant history of coronary artery disease. He has had about 13 stents placed in the past from several different carpenter assistant. He has seen several different Cardiology included several ones in [facility], Dr. Degroot, Dr. Hubbard, Dr. Chun, Dr. Tang, as well as some carpenter assistant up in [place], Dr. Neves. He comes in as he noticed his chest pain was getting worse, so he decided to be evaluated. He has been ruled out for COVID. On my evaluation, he has ongoing chest pain about 4/10. PAST MEDICAL HISTORY: 1. Coronary artery disease, status post multiple stenting. 2. Type 2 diabetes. 3. Renal stones. 4. Hyperlipidemia. 5. Hypertension. SURGICAL HISTORY: 1. Finger surgeries. 2. Angioplasty as above, multiple. 3. Lithotripsy. SOCIAL HISTORY: No alcohol, tobacco, or drugs. OUTPATIENT MEDICATIONS: 1. Metformin 1000 mg b.i.d. 2. Lisinopril 40 mg a day. 3. Coreg 6.25 b.i.d. 4. Plavix 75 mg a day. 5. Atorvastatin 80 mg a day. 6. Aspirin 81 a day. ALLERGIES: BEE POLLEN AND TEGRETOL. HE GETS NAUSEATED WITH ANY OPIOIDS. REVIEW OF SYSTEMS: A 12-point review of systems was done and was found to be negative other than stated in the history of present illness. PHYSICAL EXAMINATION: VITAL SIGNS: Temperature 97.7, pulse 79, respiratory rate 16, saturating 95% on room air, blood pressure 137/72. GENERAL: Awake, alert, and oriented x3, in no distress. HEENT: Normocephalic and atraumatic. NECK: Supple. LUNGS: Clear. CARDIOVASCULAR: S1 and S2. No S3 or S4. No murmurs. ABDOMEN: Soft. Positive bowel sounds. EXTREMITIES: No edema. SKIN: Warm and dry. LABORATORY DATA: Laboratory work was reviewed. CBC is unremarkable. Coags were unremarkable. Chemistries were normal except for a glucose of 200s. Troponin was negative x3. TSH was normal. Triglycerides 439. COVID-19 PCR was not detected. IMAGING STUDIES: EKG was reviewed. ASSESSMENT AND PLAN: 1. Unstable angina. 2. History of coronary artery disease with multiple stenting in the past. 3. Hypertension. 4. Hyperlipidemia. 5. Type 2 diabetes. PLAN: 1. We will proceed with coronary angiography as he has had a normal stress test close to year and he continued to have chest pain. Currently, he has ongoing chest pain at about a 4/10. We will proceed emergently as he has ongoing chest pain. We spoke at length about the risks and benefits of the procedure. Risks included, but not limited to stroke, [place], , bleeding, need for blood transfusion, limb loss, organ loss. He understands and verbalized understanding of this and agrees to proceed. Drug-eluting stents if needed. He gets nauseated with fentanyl or morphine or any opioid, so he only wants Versed. 2. We will plan on doing this from radial access. Drug-eluting stents if needed. 3. Further recommendations per results of coronary angiogram. Job ID: [id number]
[2020-02-22] MEDS ORDERED: Sodium Chloride 0.9% 500 ML IV SCH (16:30)
[2020-02-22] MEDS: HumaLOG 300 UNITS/3 ML VIAL SC PRN (16:58)
[2020-02-23 03:57] LABS: #Basophils 0.1 thou/uL (0.0-0.2); #Eosinphils 0.1 thou/uL (0.0-0.7); #Lymphocytes 1.9 thou/uL (1.20-3.40); #Monocytes 0.6 thou/uL (0.11-0.59); #Neutrophils 3.1 thou/uL (1.40-6.50); %Basophils 1.7 % (0.0-1.0); %Eosinophils 1.8 % (0.0-10.0); %Lymphocytes 33.2 % (21.0-51.0); %Neutrophils 53.3 % (42.0-75.0); Hemoglobin 14.5 g/dL (14.0-18.0); Mean Corpuscular HGB CONC 33.4 g/dL (32.0-36.0); Mean Corpuscular Volume 92.6 fL (78.0-98.0); Platelet Count 264 thou/uL (130-400); RBC Distribution Width 11.8 % (11.5-14.5); Red Blood Cell (RBC) Count 4.69 mill/uL (4.70-6.10); White Blood Cell (WBC) Count 5.9 thou/uL (4.8-10.8)
[2020-02-23 04:24] LABS: ALT (SGPT) 35 U/L (8-55); AST (SGOT) 26 U/L (5-34); Albumin 4.2 g/dL (3.5-5.0); Alkaline Phosphatase 59 U/L (40-110); Anion Gap 14 mmol/L (10-20); BUN (Urea Nitrogen) 12 mg/dL (8.9-20.6); Bilirubin, Total 0.6 mg/dL (0.2-1.2); Calc. Creatinine Clearance 206 mL/min (70-130); Carbon Dioxide 23 mmol/L (22-29); Chloride 101 mmol/L (98-107); Estimated GFR-MDRD Greater than 90; Globulin 2.6 g/dL (2.4-3.5); Glucose 187 mg/dL (70-105); Potassium 4.2 mmol/L (3.5-5.1); Protein, Total 6.8 g/dL (6.0-8.3); Sodium 134 mmol/L (136-145)
[2020-02-23] MEDS: HumaLOG 300 UNITS/3 ML VIAL SC PRN (06:38)
[2020-02-23] MEDS ORDERED: metFORMIN 500 MG TAB PO SCH (08:00)
[2020-02-23] MEDS ORDERED: Lisinopril 10 MG TAB PO SCH (09:00)
[2020-02-23] MEDS ORDERED: Carvedilol 6.25 MG TAB PO SCH (09:00)
[2020-02-23] MEDS ORDERED: Clopidogrel Bisulfate 75 MG TAB PO SCH (09:00)
[2020-02-23] MEDS ORDERED: Multivitamin W/ Minerals 1 TAB PO SCH (09:00)
[2020-02-23] MEDS: Famotidine 20 MG TAB PO SCH (09:20)
[2020-02-23] MEDS: Enoxaparin Sodium 40 MG/0.4 ML SYRINGE SC SCH (09:21)
[2020-02-23 10:47] VITALS: BP 137/77; TEMP 97.6
--- NOTE | 2020-02-23 18:20 | PDOC.CPN ---
- Subjective Date: 02/23/20 Time: 09:45 Interval history: He is doing much better. No more chest pain. - Review of Systems General: denies: fever/chills, weight/appetite/sleep changes, night sweats, fatigue Respiratory: denies: cough, congestion, shortness of breath, exercise intolerance Cardiovascular: denies: chest pain, palpitation, edema, paroxysmal nocturnal dyspnea, orthopnea Gastrointestinal: denies: nausea, vomiting, diarrhea, constipation, abd pain, GI bleeding Musculoskeletal: denies: pain, tenderness, stiffness, swelling, arthritis/ arthralgias Neurological: denies: numbness, syncope, seizure, weakness - Objective Allergies/Adverse Reactions: Allergies Allergy/AdvReac Type Severity Reaction Status Date / Time venom-honey bee Allergy Mild Verified 02/21/20 23:39 [bee venom (honey bee)] carbamazepine [From Tegretol] Allergy lock jaw Verified 02/21/20 23:39 Vital Signs & Weight: Vital Signs Temp Pulse Resp BP BP Pulse Ox 02/23/20 10:44 97.6 F 89 18 137/77 96 02/23/20 09:20 131/70 02/23/20 08:09 98.5 F 97 18 164/90 H 95 Weight 284 lb 12.8 oz - Physical Exam General: alert & oriented x3 HEENT: mucus membranes moist Neck: supple neck Cardiac: regular rate and rhythm Lungs: normal breath sounds Neuro: grossly intact Abdomen: active bowel sounds Extremities: no edema Skin: clear Musculoskeletal: no pain - Labs Result Diagrams: 02/23/20 03:32 02/23/20 03:32 Troponin/CKMB Troponin I 0.026 ng/mL (< 0.028) 02/22/20 00:37 - Telemetry Sinus rhythms and dysrhythmias: sinus tachycardia - Assessment/Plan Assessment/Plan: 1. Unstable angina 2. ACS 3. CAD 4. S/P PCI to RCA with SHOAIB. PLAN: - Continue NIALL with plavix and aspirin - Continue Statin - May discharge home - Follow up in the office in 3-4 weeks.
--- NOTE | 2020-02-23 18:25 | DIS ---
DATE OF ADMISSION: 02/21/2020 DATE OF DISCHARGE: 02/23/2020 DISCHARGE DISPOSITION: Home. PRIMARY DISCHARGE DIAGNOSIS: Coronary artery disease, status post stent placed to mid right coronary artery. SECONDARY DISCHARGE DIAGNOSES: History of coronary artery disease with prior 13 stents, hypertension, dyslipidemia, obesity, diabetes mellitus type 2. PROCEDURES DONE DURING HOSPITALIZATION: Chest x-ray done showed no acute cardiopulmonary process. H and H 14 and 43, platelet count 264. BUN 12, creatinine 0.8, triglycerides 439, total cholesterol 148, HDL 27, TSH 2.1. Troponin x3 negative. COVID-19 PCR done on 02/21/2020 was negative. INPATIENT CONSULT: Dr. Wilkins for Cardiology. DISCHARGE MEDICATIONS: 1. Aspirin 81 mg p.o. daily. 2. Lipitor 80 mg p.o. at bedtime. 3. Coreg 6.25 mg twice daily. 4. Plavix 75 mg p.o. daily. 5. Lisinopril 10 mg p.o. daily. 6. Multivitamin 1 tablet once daily. 7. Metformin 1000 mg twice daily. 8. Magnesium 250 mg p.o. at bedtime. ALLERGIES: CARBAMAZEPINE AND HONEY BEE VENOM. DISCHARGE PLAN: The patient will follow up with Dr. Wilkins in 2 weeks. He needs follow up with Latrell Phillips, his primary care physician, in 1 week. BRIEF COURSE DURING HOSPITALIZATION: The patient initially came to ER with complaints of retrosternal chest pain radiating to the left arm. He has had prior history of significant coronary artery disease with nearly 13 stents placed inside him. He has had 3 sets of troponin done, which were negative. Cardiology consultation with Dr. Wilkins was requested. The patient has had cardiac catheterization done and was found to have had severe mid RCA lesion, for which Synergy SHOAIB stent was placed. Post this procedure, the patient's chest pain and discomfort has completely resolved. He was counseled with regard to medication compliance and dietary compliance. The patient was also counseled to follow up with Dr. Wilkins in 2 weeks. He is otherwise hemodynamically stable, ambulating and eating well. He has had a radial approach for the cardiac catheterization. Please note, I have seen and examined the patient on the day of discharge. Job ID: [id number]
[2020-02-23] MEDS ORDERED: Magnesium Oxide 250 MG TAB PO SCH (21:00)
[2020-02-23] MEDS ORDERED: Atorvastatin Calcium 40 MG TAB PO SCH (21:00)
[2020-02-23] MEDS ORDERED: Aspirin 81 mg Enteric Coated Tablet PO SCH (21:00)
== END 2020-02-23 10:52 | disposition home or self-care (01) ==
LOC: ERS 17:35 → 2NO 20:02
PROVIDERS: ADMIT Internal Medicine; ATTEND Internal Medicine
PROC: 4A023N7 Measurement of Cardiac Sampling and Pressure, Left Heart, Percutaneous Approach (ICD-10-PCS; principal; 2020-02-23)
PROC: B2011ZZ Plain Radiography of Multiple Coronary Arteries using Low Osmolar Contrast (ICD-10-PCS; 2020-02-23)
DX: I25.118 Atherosclerotic heart disease of native coronary artery with other forms of angina pectoris (principal); I10 Essential (primary) hypertension; E11.69 Type 2 diabetes mellitus with other specified complication; E78.5 Hyperlipidemia, unspecified; E66.9 Obesity, unspecified; Z68.35 Body mass index [BMI] 35.0-35.9, adult; Z79.82 Long term (current) use of aspirin; Z79.84 Long term (current) use of oral hypoglycemic drugs; Z79.899 Other long term (current) drug therapy; Z95.5 Presence of coronary angioplasty implant and graft; Z88.8 Allergy status to other drugs, medicaments and biological substances; Z91.030 Bee allergy status; Z20.828 Contact with and (suspected) exposure to other viral communicable diseases
CPT/HCPCS: 36415; 36416; 71045; 80053; 80061; 82550; 83690; 84443; 84484; 85025; 85347; 87635; 92928; 93005; 93454; 96372; 99152; C1874; C9600; G0378; J1644; J1650; J2250; Q9967; U0003

== ENCOUNTER 2020-12-07 03:37 | Emergency (ER) | payer OTHER ==
[2020-12-07] MEDS ORDERED: HYDROcodone/Acetaminophen 5/325 mg Tablet ONE (04:36)
[2020-12-07 04:44] LABS: Bilirubin Negative (Negative); Blood, Urine Negative (Negative); Clarity Clear (Clear); Glucose, Urine (Dipstick) 30 mg/dL (Negative); Ketone, Urine Negative (Negative); Leukocyte Negative Leu/uL (Negative); Nitrite Negative (Negative); Protein, Urine (Dipstick) 20 mg/dL (Neg-Trace); Specific Gravity, Urine 1.039 (1.002-1.036); pH, Urine 5.5 (5.0-9.0)
== END 2020-12-07 05:40 | disposition home or self-care (01) ==
LOC: ERS 03:37
DX: K02.9 Dental caries, unspecified (principal); R30.0 Dysuria; E11.9 Type 2 diabetes mellitus without complications; E78.5 Hyperlipidemia, unspecified; I25.10 Atherosclerotic heart disease of native coronary artery without angina pectoris; I10 Essential (primary) hypertension; I25.2 Old myocardial infarction
CPT/HCPCS: 81003; 87086; 99283

== ENCOUNTER 2021-01-28 17:35 | Emergency (ER) | payer OTHER ==
[2021-01-28] MEDS ORDERED: Ondansetron ODT 8 MG TAB ONE (17:41)
[2021-01-28] MEDS ORDERED: Promethazine HCl 25 MG/ML VIAL ONE (18:17)
== END 2021-01-28 19:04 | disposition home or self-care (01) ==
LOC: ERS 17:35
DX: S06.0X9A Concussion with loss of consciousness of unspecified duration, initial encounter (principal); I25.2 Old myocardial infarction; E11.9 Type 2 diabetes mellitus without complications; E78.5 Hyperlipidemia, unspecified; I10 Essential (primary) hypertension; W19.XXXA Unspecified fall, initial encounter
CPT/HCPCS: 70450; 72125; 96374; J2550; Q0162

== ENCOUNTER 2025-06-24 11:24 | Emergency (ER) | payer OTHER, SELFPAY | END 2025-06-24 13:18 | disposition home or self-care (01) | LOC: ERS 11:24 | DX: B34.9 Viral infection, unspecified (principal); I25.2 Old myocardial infarction; E11.9 Type 2 diabetes mellitus without complications; I10 Essential (primary) hypertension; Z79.84 Long term (current) use of oral hypoglycemic drugs; Z79.899 Other long term (current) drug therapy; Z79.82 Long term (current) use of aspirin; Z95.5 Presence of coronary angioplasty implant and graft | CPT/HCPCS: 71045; 87081; 87428; 87430; 93005 ==